=== PATIENT | male | born 1995 | race Caucasian/White ===

== ENCOUNTER 2016-05-09 20:28 | Emergency (ER) | payer OTHER ==
[~2016-05-09] VITALS: Ht 170.2 cm; Wt 63.5 kg
[2016-05-09 21:27] VITALS: BP 113/88
== END 2016-05-10 00:42 | disposition home or self-care (01) ==
LOC: ER 20:38
DX: J06.9 Acute upper respiratory infection, unspecified (principal)
CPT/HCPCS: 99283; A4606; Z7610